=== PATIENT | male | born 1970 | race Caucasian/White ===

== ENCOUNTER 2019-12-16 21:43 | Emergency (ER) | payer OTHER, MEDICAID ==
[~2019-12-16] VITALS: Ht 167.6 cm; Wt 64.4 kg
[2019-12-16] MEDS ORDERED: NORCO 5-325 TA1 EACH PO (23:42)
== END 2019-12-17 00:52 | disposition home or self-care (01) ==
LOC: ED 21:43
DX: S42.034A Nondisplaced fracture of lateral end of right clavicle, initial encounter for closed fracture (principal); Z91.040 Latex allergy status; V86.59XA Driver of other special all-terrain or other off-road motor vehicle injured in nontraffic accident, initial encounter; Y93.89 Activity, other specified; Y92.89 Other specified places as the place of occurrence of the external cause; Y99.8 Other external cause status

== ENCOUNTER 2020-07-14 07:27 | Emergency (ER) | payer OTHER ==
[~2020-07-14] VITALS: Wt 68.0 kg
[~2020-07-14 07:27] MED LIST: NORCO 5-325 TA1 EACH PO
[2020-07-14] MEDS ORDERED: Motrin,Rufen800 MG PO (08:45)
[2020-07-14] MEDS ORDERED: AMOXICILLIN875 MG PO (08:45)
== END 2020-07-14 09:27 | disposition home or self-care (01) ==
LOC: ED 07:27
DX: S91.331A Puncture wound without foreign body, right foot, initial encounter (principal); K08.89 Other specified disorders of teeth and supporting structures; Z79.899 Other long term (current) drug therapy; W45.0XXA Nail entering through skin, initial encounter; Y93.89 Activity, other specified; Y92.89 Other specified places as the place of occurrence of the external cause; Y99.8 Other external cause status

== ENCOUNTER 2020-08-06 20:34 | Emergency (ER) | payer OTHER ==
[~2020-08-06] VITALS: Ht 167.6 cm; Wt 68.0 kg
[~2020-08-06 20:34] MED LIST changes: +AMOXICILLIN875 MG PO; +Motrin,Rufen800 MG PO
[2020-08-06] MEDS ORDERED: AUGMENTIN 875875 MG PO (22:17)
== END 2020-08-06 23:54 ==
LOC: ED 20:34
DX: S90.454A Superficial foreign body, right lesser toe(s), initial encounter (principal); K04.7 Periapical abscess without sinus; F17.200 Nicotine dependence, unspecified, uncomplicated; Z79.899 Other long term (current) drug therapy; X58.XXXA Exposure to other specified factors, initial encounter; Y93.89 Activity, other specified; Y92.89 Other specified places as the place of occurrence of the external cause; Y99.8 Other external cause status

== ENCOUNTER 2022-03-23 04:47 | Emergency (ER) | payer OTHER ==
[~2022-03-23] VITALS: Ht 167.6 cm; Wt 68.0 kg
[~2022-03-23 04:47] MED LIST changes: +AUGMENTIN 875875 MG PO
[2022-03-23] MEDS ORDERED: ACETAMINOPHEN325 M2 PO (05:43)
[2022-03-23] MEDS ORDERED: OXYCODONE HCL5 MG PO (05:43)
[2022-03-23] MEDS ORDERED: MEDI-FIRST IBU200 MG PO (05:43)
[2022-03-23] MEDS ORDERED: METHOCARBAMOL500 M1 PO (05:43)
[2022-03-24] MEDS ORDERED: CYCLOBENZAPRINE10 MG PO (01:38)
== END 2022-03-23 09:07 | disposition left against medical advice (07) ==
LOC: ED 04:47
DX: M54.9 Dorsalgia, unspecified (principal); Z53.21 Procedure and treatment not carried out due to patient leaving prior to being seen by health care provider

== ENCOUNTER 2022-03-23 23:02 | Emergency (ER) | payer OTHER ==
[~2022-03-23] VITALS: Ht 177.8 cm; Wt 68.0 kg
[~2022-03-23 23:02] MED LIST changes: +ACETAMINOPHEN325 M2 PO; +MEDI-FIRST IBU200 MG PO; +METHOCARBAMOL500 M1 PO; +OXYCODONE HCL5 MG PO
[2022-03-24] MEDS ORDERED: CYCLOBENZAPRINE10 MG PO (01:38)
== END 2022-03-24 01:44 | disposition home or self-care (01) ==
LOC: ED 23:02
DX: S22.050A Wedge compression fracture of T5-T6 vertebra, initial encounter for closed fracture (principal); V89.2XXA Person injured in unspecified motor-vehicle accident, traffic, initial encounter; Y93.89 Activity, other specified; Y92.89 Other specified places as the place of occurrence of the external cause; Y99.8 Other external cause status

== ENCOUNTER 2022-05-08 12:04 | Emergency (ER) | payer OTHER ==
[~2022-05-08] VITALS: Wt 63.5 kg
[~2022-05-08 12:04] MED LIST changes: +CYCLOBENZAPRINE10 MG PO
[2022-05-08 14:42] LABS: BASO # 0.1 10*3/uL (0.0-0.1); BASO % 0.9 % (0.0-1.0); EOS # 0.1 10*3/uL (0.0-0.4); HEMATOCRIT 33.2 % (42.0-52.0); LYMPH # 1.4 10*3/uL (1.3-4.4); LYMPH % 20.6 % (27.0-41.0); MEAN CELL VOLUME 98.8 fl (80.0-94.0); MEAN CORPUSCULAR HGB CONC 33.4 g/dl (33.0-37.0); MEAN PLATELET VOLUME 9.4 fl (9.6-12.3); MONO # 0.6 10*3/uL (0.1-1.0); NEUT # 4.8 10*3/uL (2.3-7.9); NEUT % 69.4 % (47.0-73.0); PLATELET COUNT AUTOMATED 271 10*3/uL (130-400); RED BLOOD COUNT 3.36 10*6/uL (4.50-5.90); RED CELL DISTRI WIDTH 14.1 % (0-14.5); WHITE BLOOD COUNT 6.9 10*3/uL (4.8-10.8)
[2022-05-08 15:00] LABS: ALKALINE PHOSPHATASE 86 U/L (46-116); BUN 10 mg/dl (9-23); CHLORIDE 110 mmol/L (98-107); CREATININE 0.61 mg/dL (0.70-1.30); POTASSIUM 3.4 mmol/L (3.4-5.1); SGPT/ALT 17 U/L (10-49); SODIUM 143 mmol/L (136-145); TOTAL PROTEIN 6.2 gm/dL (6.0-8.0)
[2022-05-08 15:01] LABS: ETHYL ALCOHOL < 3.0 mg/dl (<3)
[2022-05-08 16:20] LABS: BILIRUBIN Negative (Negative); BLOOD Negative (Negative); CLARITY Clear (Clear); COLOR Yellow (Yellow); GLUCOSE Negative (Negative); KETONE Trace (Negative); LEUKO ESTERASE Negative (Negative); NITRITE Negative (Negative); PH 5.5 (4.5-8.0); SPECIFIC GRAVITY >= 1.030 (1.001-1.030)
[2022-05-08 16:35] LABS: URINE AMPHETAMINES Positive (1000ng/ml); URINE BARBITURATES Negative (200ng/ml); URINE BENZODIAZEPINES Negative (200ng/ml); URINE CANNABINOIDS (THC) Positive (50ng/ml); URINE COCAINE Negative (300ng/ml); URINE METHADONE Negative (300ng/ml); URINE OPIATES Negative (300ng/ml); URINE PHENCYCLIDINE Negative (25ng/ml)
[2022-05-08 16:55] LABS: CALCIUM OXALATE CRYSTALS 2+; RBC 0-2 rbc/hpf (0-2); WBC 0-2 wbc/hpf (0-5)
== END 2022-05-08 20:34 | disposition left against medical advice (07) ==
LOC: ED 12:04
PROVIDERS: Student in an Organized Health Care Education/Training Program
DX: F15.90 Other stimulant use, unspecified, uncomplicated (principal); Z59.00 Homelessness unspecified

== ENCOUNTER 2022-05-12 20:27 | Emergency (ER) | payer OTHER ==
[~2022-05-12] VITALS: Ht 170.1 cm; Wt 64.4 kg
[2022-05-12] MEDS ORDERED: NAPROXEN250 MG PO (21:17)
[2022-05-12] MEDS ORDERED: METHOCARBAMOL500 M1 PO (21:17)
== END 2022-05-12 21:33 | disposition home or self-care (01) ==
LOC: ED 20:27
DX: G89.29 Other chronic pain (principal); M54.6 Pain in thoracic spine; F17.200 Nicotine dependence, unspecified, uncomplicated

== ENCOUNTER 2022-05-17 16:16 | Emergency (ER) | payer OTHER ==
[~2022-05-17] VITALS: Ht 170.1 cm; Wt 64.9 kg
[~2022-05-17 16:16] MED LIST changes: +NAPROXEN250 MG PO
[2022-05-17 18:10] LABS: BASO # 0.1 10*3/uL (0.0-0.1); BASO % 0.8 % (0.0-1.0); EOS # 0.2 10*3/uL (0.0-0.4); EOS % 2.4 % (1.0-4.0); HEMATOCRIT 38.6 % (42.0-52.0); LYMPH # 2.2 10*3/uL (1.3-4.4); LYMPH % 24.9 % (27.0-41.0); MEAN CELL VOLUME 97.7 fl (80.0-94.0); MEAN CORPUSCULAR HGB 32.4 pg (27.0-31.0); MEAN CORPUSCULAR HGB CONC 33.2 g/dl (33.0-37.0); MEAN PLATELET VOLUME 8.9 fl (9.6-12.3); MONO # 0.6 10*3/uL (0.1-1.0); MONO % 6.3 % (3.0-9.0); NEUT # 5.7 10*3/uL (2.3-7.9); NEUT % 65.1 % (47.0-73.0); PLATELET COUNT AUTOMATED 413 10*3/uL (130-400); RED BLOOD COUNT 3.95 10*6/uL (4.50-5.90); RED CELL DISTRI WIDTH 14.6 % (0-14.5); WHITE BLOOD COUNT 8.8 10*3/uL (4.8-10.8)
[2022-05-17 18:55] LABS: ALKALINE PHOSPHATASE 125 U/L (46-116); BUN 26 mg/dl (9-23); CHLORIDE 106 mmol/L (98-107); ETHYL ALCOHOL 163.4 mg/dl (<3); POTASSIUM 3.8 mmol/L (3.4-5.1); SGPT/ALT 27 U/L (10-49); TOTAL PROTEIN 7.2 gm/dL (6.0-8.0)
[2022-05-17 21:02] LABS: BILIRUBIN Negative (Negative); BLOOD Negative (Negative); CLARITY Clear (Clear); COLOR Yellow (Yellow); GLUCOSE Negative (Negative); KETONE Trace (Negative); LEUKO ESTERASE Negative (Negative); NITRITE Negative (Negative); SPECIFIC GRAVITY 1.025 (1.001-1.030)
[2022-05-17 21:16] LABS: URINE AMPHETAMINES Positive (1000ng/ml); URINE BARBITURATES Negative (200ng/ml); URINE BENZODIAZEPINES Negative (200ng/ml); URINE CANNABINOIDS (THC) Negative (50ng/ml); URINE COCAINE Negative (300ng/ml); URINE METHADONE Negative (300ng/ml); URINE OPIATES Negative (300ng/ml); URINE PHENCYCLIDINE Negative (25ng/ml)
[2022-05-17] MEDS ORDERED: SEPTDS PO (21:39)
[2022-05-17 22:19] LABS: RBC 0-2 rbc/hpf (0-2); WBC 0-2 wbc/hpf (0-5)
[2022-05-17 22:20] LABS: CALCIUM OXALATE CRYSTALS 2+
== END 2022-05-17 21:47 | disposition home or self-care (01) ==
LOC: ED 16:16
PROVIDERS: Nurse Practitioner Family
DX: S11.91XA Laceration without foreign body of unspecified part of neck, initial encounter (principal); W18.09XA Striking against other object with subsequent fall, initial encounter; Y93.89 Activity, other specified; Y92.89 Other specified places as the place of occurrence of the external cause; Y99.8 Other external cause status

== ENCOUNTER 2022-06-01 12:10 | Emergency (ER) | payer OTHER ==
[~2022-06-01] VITALS: Ht 170.1 cm; Wt 68.0 kg
[~2022-06-01 12:10] MED LIST changes: +SEPTDS PO
[2022-06-01] MEDS ORDERED: CYCLOBENZAPRINE10 MG PO (12:47)
[2022-06-01] MEDS ORDERED: Motrin,Rufen800 MG PO (12:47)
== END 2022-06-01 13:45 | disposition home or self-care (01) ==
LOC: ED 12:10
DX: S11.81XD Laceration without foreign body of other specified part of neck, subsequent encounter (principal); M54.9 Dorsalgia, unspecified; Z59.00 Homelessness unspecified; Z87.891 Personal history of nicotine dependence; F10.90 Alcohol use, unspecified, uncomplicated; X58.XXXD Exposure to other specified factors, subsequent encounter

== ENCOUNTER 2022-11-28 01:14 | Inpatient (IN) | payer OTHER ==
[~2022-11-28] VITALS: Ht 170.1 cm; Wt 67.1 kg
[2022-11-28 01:30] VITALS: BP 135/89
[2022-11-28 01:52] LABS: BASO % 0.2 % (0.0-1.0); LYMPH # 0.8 10*3/uL (1.3-4.4); LYMPH % 4.7 % (27.0-41.0); MEAN CELL VOLUME 94.7 fl (80.0-94.0); MEAN CORPUSCULAR HGB 33.3 pg (27.0-31.0); MEAN CORPUSCULAR HGB CONC 35.1 g/dl (33.0-37.0); MEAN PLATELET VOLUME 9.9 fl (9.6-12.3); MONO # 1.2 10*3/uL (0.1-1.0); MONO % 7.2 % (3.0-9.0); NEUT # 14.5 10*3/uL (2.3-7.9); NEUT % 87.5 % (47.0-73.0); PLATELET COUNT AUTOMATED 274 10*3/uL (130-400); RED BLOOD COUNT 4.75 10*6/uL (4.50-5.90); RED CELL DISTRI WIDTH 12.2 % (0-14.5); WHITE BLOOD COUNT 16.5 10*3/uL (4.8-10.8)
[2022-11-28 02:23] LABS: ALKALINE PHOSPHATASE 75 U/L (46-116); BUN 11 mg/dl (9-23); CHLORIDE 99 mmol/L (98-107); LIPASE 483 U/L (12-53); POTASSIUM 4.3 mmol/L (3.4-5.1); SGPT/ALT 15 U/L (10-49); TOTAL PROTEIN 7.3 gm/dL (6.0-8.0)
[2022-11-28 03:46] VITALS: BP 113/76
[2022-11-28 07:51] VITALS: BP 120/79
[2022-11-28 10:00] VITALS: BP 130/92
[2022-11-28 16:00] VITALS: BP 129/85
[2022-11-28 20:00] VITALS: BP 128/81
[2022-11-29] VITALS: BP 138/87
[2022-11-29 05:27] LABS: ALKALINE PHOSPHATASE 58 U/L (46-116); BUN 12 mg/dl (9-23); CHLORIDE 102 mmol/L (98-107); POTASSIUM 3.7 mmol/L (3.4-5.1); SGPT/ALT 9 U/L (10-49); TOTAL PROTEIN 5.8 gm/dL (6.0-8.0)
[2022-11-29 06:11] LABS: BASO % 0.2 % (0.0-1.0); EOS % 0.2 % (1.0-4.0); HEMATOCRIT 36.6 % (42.0-52.0); LYMPH # 0.9 10*3/uL (1.3-4.4); MEAN CELL VOLUME 97.3 fl (80.0-94.0); MEAN CORPUSCULAR HGB 33.5 pg (27.0-31.0); MEAN CORPUSCULAR HGB CONC 34.4 g/dl (33.0-37.0); MEAN PLATELET VOLUME 10.6 fl (9.6-12.3); MONO # 1.3 10*3/uL (0.1-1.0); MONO % 10.5 % (3.0-9.0); NEUT # 9.9 10*3/uL (2.3-7.9); NEUT % 81.7 % (47.0-73.0); PLATELET COUNT AUTOMATED 209 10*3/uL (130-400); RED BLOOD COUNT 3.76 10*6/uL (4.50-5.90); RED CELL DISTRI WIDTH 12.5 % (0-14.5); WHITE BLOOD COUNT 12.1 10*3/uL (4.8-10.8)
[2022-11-29 08:00] VITALS: BP 134/94
[2022-11-29 12:00] VITALS: BP 132/81
[2022-11-29 16:00] VITALS: BP 138/92
[2022-11-29 20:00] VITALS: BP 129/73
[2022-11-30 07:29] LABS: BASO % 0.2 % (0.0-1.0); EOS % 0.4 % (1.0-4.0); HEMATOCRIT 33.7 % (42.0-52.0); LYMPH # 0.7 10*3/uL (1.3-4.4); LYMPH % 6.3 % (27.0-41.0); MEAN CELL VOLUME 96.6 fl (80.0-94.0); MEAN CORPUSCULAR HGB CONC 34.1 g/dl (33.0-37.0); MEAN PLATELET VOLUME 10.2 fl (9.6-12.3); MONO # 1.4 10*3/uL (0.1-1.0); MONO % 12.1 % (3.0-9.0); NEUT # 9.1 10*3/uL (2.3-7.9); NEUT % 80.6 % (47.0-73.0); PLATELET COUNT AUTOMATED 183 10*3/uL (130-400); RED BLOOD COUNT 3.49 10*6/uL (4.50-5.90); WHITE BLOOD COUNT 11.3 10*3/uL (4.8-10.8)
[2022-11-30 07:50] LABS: BUN 10 mg/dl (9-23); CHLORIDE 102 mmol/L (98-107); LIPASE 79 U/L (12-53); POTASSIUM 3.8 mmol/L (3.4-5.1)
[2022-11-30 08:00] VITALS: BP 110/67
[2022-11-30 12:00] VITALS: BP 110/69
[2022-11-30 16:00] VITALS: BP 102/52
[2022-11-30 20:00] VITALS: BP 117/75
[2022-11-30 22:25] LABS: BILIRUBIN Negative (Negative); BLOOD Negative (Negative); CLARITY Cloudy (Clear); COLOR Yellow (Yellow); GLUCOSE Negative (Negative); KETONE Negative (Negative); LEUKO ESTERASE Negative (Negative); NITRITE Negative (Negative)
[2022-12-01] VITALS: BP 97/60
[2022-12-01 04:06] LABS: THYROID PEROXIDASE (TPO) AB 19 IU/mL (0-34)
[2022-12-01 07:29] LABS: BASO % 0.3 % (0.0-1.0); EOS # 0.1 10*3/uL (0.0-0.4); EOS % 1.2 % (1.0-4.0); HEMATOCRIT 33.1 % (42.0-52.0); LYMPH # 0.6 10*3/uL (1.3-4.4); LYMPH % 6.9 % (27.0-41.0); MEAN CELL VOLUME 95.7 fl (80.0-94.0); MEAN CORPUSCULAR HGB 33.5 pg (27.0-31.0); MEAN PLATELET VOLUME 10.6 fl (9.6-12.3); MONO # 1.3 10*3/uL (0.1-1.0); MONO % 13.8 % (3.0-9.0); NEUT % 77.5 % (47.0-73.0); PLATELET COUNT AUTOMATED 196 10*3/uL (130-400); RED BLOOD COUNT 3.46 10*6/uL (4.50-5.90); RED CELL DISTRI WIDTH 11.9 % (0-14.5); WHITE BLOOD COUNT 9.1 10*3/uL (4.8-10.8)
[2022-12-01 07:53] LABS: BUN 13 mg/dl (9-23); CHLORIDE 101 mmol/L (98-107); POTASSIUM 3.8 mmol/L (3.4-5.1)
[2022-12-01 08:00] VITALS: BP 98/74
[2022-12-01] MEDS ORDERED: DICYCLOMINE HYD20 MG PO (11:09)
[2022-12-01] MEDS ORDERED: PERCOCET 5-3251 EACH PO (11:09)
[2022-12-01] MEDS ORDERED: PROPRANOLOL HCL10 MG PO (11:09)
[2022-12-01 12:00] VITALS: BP 100/72
[2022-12-01 16:08] LABS: THYROGLOBULIN ANTIBODY <1.0 IU/mL (0.0-0.9)
== END 2022-12-01 15:14 | disposition home or self-care (01) | DRG 282 ==
LOC: ED 01:14 → EDHOLD 03:01 → 4E 03:01
PROVIDERS: Internal Medicine; Student in an Organized Health Care Education/Training Program; ADMIT Family Medicine; ATTEND Family Medicine
DX: K85.21 Alcohol induced acute pancreatitis with uninfected necrosis (principal); R65.10 Systemic inflammatory response syndrome (SIRS) of non-infectious origin without acute organ dysfunction; K52.9 Noninfective gastroenteritis and colitis, unspecified; Z66 Do not resuscitate; F17.210 Nicotine dependence, cigarettes, uncomplicated; R73.9 Hyperglycemia, unspecified; K75.9 Inflammatory liver disease, unspecified; K76.0 Fatty (change of) liver, not elsewhere classified; K20.90 Esophagitis, unspecified without bleeding; E44.0 Moderate protein-calorie malnutrition; E05.90 Thyrotoxicosis, unspecified without thyrotoxic crisis or storm; F10.239 Alcohol dependence with withdrawal, unspecified; Y90.9 Presence of alcohol in blood, level not specified; Z71.6 Tobacco abuse counseling

== ENCOUNTER 2024-02-10 14:59 | Emergency (ER) | payer OTHER ==
[~2024-02-10] VITALS: Ht 170.1 cm; Wt 68.0 kg
[~2024-02-10 14:59] MED LIST changes: +DICYCLOMINE HYD20 MG PO; +PERCOCET 5-3251 EACH PO; +PROPRANOLOL HCL10 MG PO
[2024-02-10] MEDS ORDERED: Haloperidol Lactate 5 MG/ML AMP IM ONE (15:45)
[2024-02-10] MEDS ORDERED: LORazepam 2 MG/ML VIAL IM ONE (15:45)
[2024-02-10 17:32] LABS: BASO % 0.5 % (0.0-1.0); HEMATOCRIT 38.3 % (42.0-52.0); LYMPH # 1.3 10*3/uL (1.3-4.4); LYMPH % 32.2 % (27.0-41.0); MEAN CELL VOLUME 95.3 fl (80.0-94.0); MEAN CORPUSCULAR HGB 31.3 pg (27.0-31.0); MEAN CORPUSCULAR HGB CONC 32.9 g/dl (33.0-37.0); MEAN PLATELET VOLUME 10.1 fl (9.6-12.3); MONO # 0.5 10*3/uL (0.1-1.0); MONO % 12.2 % (3.0-9.0); NEUT # 2.1 10*3/uL (2.3-7.9); NEUT % 54.1 % (47.0-73.0); PLATELET COUNT AUTOMATED 205 10*3/uL (130-400); RED BLOOD COUNT 4.02 10*6/uL (4.50-5.90); RED CELL DISTRI WIDTH 14.7 % (0-14.5)
[2024-02-10 17:44] LABS: ACT PARTIAL THROMBO TIME 25.6 SECONDS (20.0-32.1)
[2024-02-10 18:10] LABS: BUN 7 mg/dl (9-23); CHLORIDE 110 mmol/L (98-107); POTASSIUM 3.6 mmol/L (3.4-5.1)
[2024-02-10 18:12] LABS: ETHYL ALCOHOL 348.2 mg/dl (<3)
[2024-02-10] MEDS ORDERED: PEPCID20 MG PO (18:55)
== END 2024-02-11 00:45 | disposition home or self-care (01) ==
LOC: ED 14:59
PROVIDERS: Emergency Medicine
DX: F10.129 Alcohol abuse with intoxication, unspecified (principal); K29.70 Gastritis, unspecified, without bleeding; Y90.8 Blood alcohol level of 240 mg/100 ml or more; Z98.890 Other specified postprocedural states; Z59.00 Homelessness unspecified

== ENCOUNTER 2024-06-06 05:39 | Emergency (ER) | payer OTHER ==
[~2024-06-06] VITALS: Ht 172.7 cm; Wt 77.1 kg
[~2024-06-06 05:39] MED LIST changes: +PEPCID20 MG PO
[2024-06-06] MEDS ORDERED: Acetaminophen/Hydrocodone 5 MG/325 MG TABLET PO ONE (05:55)
[2024-06-06] MEDS ORDERED: Bacitracin Zinc 14 GM TUBE T ONE (05:55)
[2024-06-06] MEDS ORDERED: Ondansetron Hydrochloride 4 MG TAB SL ONE (05:55)
[2024-06-06] MEDS ORDERED: PENICILLIN VK500 MG PO (05:55)
[2024-06-06] MEDS ORDERED: PENICILLIN V POTASSIUM 500 MG TAB PO ONE (05:55)
== END 2024-06-06 06:10 | disposition home or self-care (01) ==
LOC: ED 05:39
DX: K02.9 Dental caries, unspecified (principal); F10.10 Alcohol abuse, uncomplicated; F17.200 Nicotine dependence, unspecified, uncomplicated; Z98.890 Other specified postprocedural states; Z59.00 Homelessness unspecified

== ENCOUNTER 2024-07-15 12:31 | Emergency (ER) | payer OTHER ==
[~2024-07-15] VITALS: Wt 58.1 kg
[~2024-07-15 12:31] MED LIST changes: +PENICILLIN VK500 MG PO
[2024-07-15] MEDS ORDERED: BUPivacaine 0.25% 10 ML VIAL SC ONE (12:55)
[2024-07-15] MEDS ORDERED: Ketorolac Tromethamine 60 MG/2 ML VIAL IM ONE (12:55)
[2024-07-15] MEDS ORDERED: Acetaminophen/Hydrocodone Bi 3 TAB PACK PO ONE (12:55)
[2024-07-15] MEDS ORDERED: TRIAMCINOLONE ACETONIDE 15 GM TUBE T ONE (12:55)
[2024-07-15] MEDS ORDERED: Cyclobenzaprine Hydrochlorid 10 MG TAB PO ONE (12:55)
[2024-07-15] MEDS ORDERED: methylPREDNISolone sod succ 125 MG VIAL IM ONE (12:55)
[2024-07-15] MEDS ORDERED: GUAIFENESIN 600 MG TAB ER PO ONE (12:55)
[2024-07-15] MEDS ORDERED: CYCLOBENZAPRINE10 MG PO (13:58)
[2024-07-15] MEDS ORDERED: MEDROL DOSEPAK4 MG PO (13:58)
[2024-07-15] MEDS ORDERED: MELOXICAM7.5 MG PO (13:58)
== END 2024-07-15 14:02 | disposition home or self-care (01) ==
LOC: ED 12:31
DX: G89.29 Other chronic pain (principal); M54.50 Low back pain, unspecified; M47.816 Spondylosis without myelopathy or radiculopathy, lumbar region; L30.8 Other specified dermatitis; M79.10 Myalgia, unspecified site; F10.10 Alcohol abuse, uncomplicated; F17.200 Nicotine dependence, unspecified, uncomplicated; F19.90 Other psychoactive substance use, unspecified, uncomplicated; Z59.00 Homelessness unspecified; Z98.890 Other specified postprocedural states

== ENCOUNTER 2024-08-22 23:33 | Emergency (ER) | payer OTHER ==
[~2024-08-22] VITALS: Ht 167.6 cm; Wt 61.2 kg
[~2024-08-22 23:33] MED LIST changes: +MEDROL DOSEPAK4 MG PO; +MELOXICAM7.5 MG PO
[2024-08-23] MEDS ORDERED: MEDROL DOSEPAK4 MG PO (02:13)
[2024-08-23] MEDS ORDERED: Acetaminophen/Hydrocodone 5 MG/325 MG TABLET PO ONE (02:15)
[2024-08-23] MEDS ORDERED: Cyclobenzaprine Hydrochlorid 10 MG TAB PO ONE (02:15)
== END 2024-08-23 02:33 | disposition home or self-care (01) ==
LOC: ED 23:33
DX: M54.50 Low back pain, unspecified (principal); Z79.899 Other long term (current) drug therapy; Z98.890 Other specified postprocedural states

== ENCOUNTER 2024-09-10 14:11 | Emergency (ER) | payer OTHER ==
[~2024-09-10] VITALS: Ht 170.1 cm; Wt 65.8 kg
[2024-09-10] MEDS ORDERED: NAPROSYN500 MG PO (14:41)
[2024-09-10] MEDS ORDERED: AMOX-CLAV 875-1 EACH PO (14:41)
[2024-09-10] MEDS ORDERED: CYCLOBENZAPRINE5 M3 PO (14:41)
[2024-09-10] MEDS ORDERED: Ketorolac Tromethamine 30 MG/ML VIAL IM ONE (14:45)
== END 2024-09-10 14:56 | disposition home or self-care (01) ==
LOC: ED 14:11
DX: M54.50 Low back pain, unspecified (principal); K02.9 Dental caries, unspecified; M54.6 Pain in thoracic spine; L98.499 Non-pressure chronic ulcer of skin of other sites with unspecified severity; F17.200 Nicotine dependence, unspecified, uncomplicated; Z98.890 Other specified postprocedural states; Z79.899 Other long term (current) drug therapy; W17.2XXA Fall into hole, initial encounter; Y93.01 Activity, walking, marching and hiking; Y92.89 Other specified places as the place of occurrence of the external cause; Y99.8 Other external cause status